=== PATIENT | male | born 1975 | race Caucasian/White ===

== ENCOUNTER → 2019-12-09 | Outpatient (CLI) | payer BC ==
[~2019-12-09] MED LIST: ALPR0.5T7 PO; SUVO10TA PO
== END | disposition home or self-care (01) ==
LOC: STAR 08:04
PROVIDERS: ATTEND Otolaryngology
DX: Z01.818 Encounter for other preprocedural examination (principal); Z11.59 Encounter for screening for other viral diseases; J32.1 Chronic frontal sinusitis; J32.2 Chronic ethmoidal sinusitis
CPT/HCPCS: 36415; 87635

== ENCOUNTER 2019-12-13 08:08 | Day surgery (SDC) | payer BC ==
[~2019-12-13] VITALS: Ht 172.7 cm; Wt 88.6 kg
[~2019-12-13 08:08] MED LIST changes: +BACITRACIN OINT 500U/GM, 15 GM ONE; +EPINEPHRINE TOPICAL SOLN 1 MG/ML, 30ML ONE; +FLUORESCEIN SODIUM 500 MG/5 ML ONE; +LIDOCAINE 1%-EPI 1:100K, 20ML ONE
[2019-12-13] MEDS ORDERED: LACTATED RINGERS 1,000 ML IV SCH (08:42)
[2019-12-13] MEDS ORDERED: CHLORHEXIDINE 15 ML UDC MM ONE (09:00)
[2019-12-13] MEDS ORDERED: DIAZEPAM 5 MG TABLET PO ONE (09:00)
[2019-12-13] MEDS ORDERED: ONDANSETRON ODT 8 MG PO ONE (09:00)
[2019-12-13] MEDS ORDERED: ACETAMINOPHEN 500 MG TABLET PO ONE (09:00)
[2019-12-13] MEDS ORDERED: LIDOCAINE-MPF 1%, 2ML INFIL ONE (09:00)
[2019-12-13 09:05] VITALS: BP 124/83
[2019-12-13] MEDS ORDERED: PROPOFOL 50 ML ONE (09:52)
[2019-12-13] MEDS ORDERED: FENTANYL PF 250 MCG/5ML ONE (09:53)
[2019-12-13] MEDS ORDERED: MIDAZOLAM 1 MG/ML, 2ML ONE (09:53)
[2019-12-13] MEDS ORDERED: ONDANSETRON 2MG/ML, 2ML ONE (10:00)
[2019-12-13] MEDS ORDERED: ROCURONIUM 10 MG/ML,10ML ONE (10:00)
[2019-12-13] MEDS ORDERED: PROPOFOL 10 MG/ML, 20ML ONE (10:00)
[2019-12-13] MEDS ORDERED: SUCCINYLCHOLINE 20 MG/ML, 10ML ONE (10:00)
[2019-12-13] MEDS ORDERED: DEXAMETHASONE 4 MG/ML, 1ML ONE (10:00)
[2019-12-13] MEDS ORDERED: PROMETHAZINE 25 MG/ML, 1ML IVPush PRN (10:30)
[2019-12-13] MEDS ORDERED: DIPHENHYDRAMINE 50 MG/ML, 1ML IVPush PRN (10:30)
[2019-12-13] MEDS ORDERED: EPHEDRINE 50 MG/ML, 1ML IM PRN (10:30)
[2019-12-13] MEDS ORDERED: OXYcodone 5 MG/5 ML ORAL.SOL UDC PO PRN (10:30)
[2019-12-13] MEDS ORDERED: ONDANSETRON 2MG/ML, 2ML IVPush PRN (10:30)
[2019-12-13] MEDS ORDERED: EPHEDRINE 50 MG/ML, 1ML IVPush PRN (10:30)
[2019-12-13] MEDS ORDERED: HYDROmorphone 1 MG/ML, 1ML INJ IVPush PRN (10:30)
[2019-12-13] MEDS ORDERED: LABETALOL 5MG/ML, 20ML IV PRN (10:30)
[2019-12-13] MEDS ORDERED: MEPERIDINE/PF 25MG/0.5ML IVPush PRN (10:30)
[2019-12-13] MEDS ORDERED: DIAZEPAM 5 MG/ML, 2ML IVPush PRN (10:30)
[2019-12-13] MEDS ORDERED: FENTANYL PF 100 MCG/2ML ONE ×2 (12:32→12:45)
[2019-12-13] MEDS ORDERED: OXYcodone 5 MG/5 ML ORAL.SOL UDC ONE (12:32)
[2019-12-13] MEDS: FENTANYL PF 100 MCG/2ML IV PRN ×4 (12:34→13:02)
[2019-12-13] MEDS ORDERED: DIAZEPAM 5 MG/ML, 2ML ONE (12:55)
[2019-12-13] MEDS ORDERED: morphine SULFATE 10 MG/ML, 1ML ONE (14:12)
[2019-12-13] MEDS ORDERED: morphine SULFATE 10 MG/ML, 1ML IVPush PRN (14:30)
== END 2019-12-13 15:10 | disposition home or self-care (01) ==
LOC: OUT 08:08
PROVIDERS: ATTEND Otolaryngology
DX: J32.0 Chronic maxillary sinusitis (principal); J33.8 Other polyp of sinus
CPT/HCPCS: 31240; 31253; 31259; 31267; 88304; 88305; J0330; J1100; J2250; J2270; J2405; J2704; J3010; J3360; J3490; J7120; Q0162

== ENCOUNTER 2019-12-20 06:29 | Day surgery (SDC) | payer BC ==
[~2019-12-20] VITALS: Ht 172.7 cm; Wt 91.4 kg
[~2019-12-20 06:29] MED LIST changes: -BACITRACIN OINT 500U/GM, 15 GM ONE; -EPINEPHRINE TOPICAL SOLN 1 MG/ML, 30ML ONE; -FLUORESCEIN SODIUM 500 MG/5 ML ONE; -LIDOCAINE 1%-EPI 1:100K, 20ML ONE
[2019-12-20] MEDS ORDERED: OXYMETAZOLINE NASAL SPRAY 0.05%, 15ML ONE (06:33)
[2019-12-20] MEDS ORDERED: LACTATED RINGERS 1,000 ML IV SCH (07:17)
[2019-12-20 07:24] VITALS: BP 162/97
[2019-12-20] MEDS ORDERED: CHLORHEXIDINE 15 ML UDC MM ONE (07:30)
[2019-12-20] MEDS ORDERED: AUGMENTIN PO (07:48)
[2019-12-20] MEDS ORDERED: MIDAZOLAM 1 MG/ML, 2ML ONE ×2 (08:05→08:18)
[2019-12-20] MEDS ORDERED: FENTANYL PF 100 MCG/2ML ONE (08:05)
[2019-12-20] MEDS ORDERED: ONDANSETRON 2MG/ML, 2ML IVPush PRN (08:30)
== END 2019-12-20 09:05 | disposition home or self-care (01) ==
LOC: OUT 06:29
PROVIDERS: ATTEND Otolaryngology
DX: J32.8 Other chronic sinusitis (principal); Z11.59 Encounter for screening for other viral diseases; J33.8 Other polyp of sinus; F41.9 Anxiety disorder, unspecified; Z79.899 Other long term (current) drug therapy; Z82.49 Family history of ischemic heart disease and other diseases of the circulatory system
CPT/HCPCS: 31237; 87635; J2250; J3010; J7120